=== PATIENT | female | born 1980 | race Caucasian/White ===

== ENCOUNTER 2020-05-08 17:02 | Outpatient (REF) | payer OTHER, SELFPAY ==
[2020-05-11 09:53] LABS: HBs Antibody, Quant 571.5 mIU/mL (See Note); Hepatitis B Surface Ab Positive (See Note)
== END 2020-05-08 17:22 ==
LOC: NCHCN 17:02
PROVIDERS: PCP Family Medicine; Visit Provider Physician Assistant Medical
DX: Z00.00 Encounter for general adult medical examination without abnormal findings (principal); Z01.84 Encounter for antibody response examination
CPT/HCPCS: 86706

== ENCOUNTER 2020-06-22 18:25 | Outpatient (REF) | payer OTHER, SELFPAY | END 2020-06-22 18:45 | LOC: NCHCN 18:25 | PROVIDERS: PCP Family Medicine; Visit Provider Nurse Practitioner Family | DX: J02.9 Acute pharyngitis, unspecified (principal) | CPT/HCPCS: 87070 ==

== ENCOUNTER 2020-06-23 09:34 | Outpatient (REF) | payer OTHER, SELFPAY ==
[2020-06-25 23:30] LABS: Patient Race White; SARS-CoV-2 RNA Undetected (Undetected); SARS-CoV-2 Specimen Source Nasal
== END 2020-06-23 09:54 ==
LOC: NCHCN 09:34
PROVIDERS: PCP Family Medicine; Visit Provider Nurse Practitioner Family
DX: J02.9 Acute pharyngitis, unspecified (principal); R51.9 Headache, unspecified
CPT/HCPCS: U0003

== ENCOUNTER 2021-04-23 13:37 | Outpatient (REF) | payer OTHER, SELFPAY ==
[2021-04-23 19:29] LABS: Abs Immature Grans 0.01 10^3/uL (0.0-0.06); Absolute Basophil Count 0.08 10^3/uL (0.0-0.2); Absolute Eosinophil Count 0.14 10^3/uL (0.0-0.7); Absolute Lymphocyte Count 2.14 10^3/uL (1.2-3.4); Absolute Monocyte Count 0.41 10^3/uL (0.1-0.8); Absolute Neutrophil Count 3.75 10^3/uL (1.2-6.7); Basophils % 1.2; Eosinophils % 2.1; HCT 39.7 % (36.0-46.0); HGB 12.9 g/dL (11.2-15.7); Immature Grans % 0.2; Lymphocytes % 32.8; MCH 30.5 pg (27.0-33.0); MCHC 32.5 % (32.0-36.0); MCV 93.9 fL (80-95); MPV 10.4 fL (8.0-11.0); Monocytes % 6.3; Neutrophils % 57.4; Nucleated RBC 0 %; Platelet Count 396 10^3/uL (130-400); RBC 4.23 10^6/uL (3.93-5.22); RDW 12.2 % (11.7-14.6); RDW-SD 42.3 fL; WBC 6.53 10^3/uL (4.4-10.8)
[2021-04-23 19:46] LABS: ALT 21 U/L (14-59); AST 11 U/L (15-37); Albumin 4.3 g/dL (3.4-5.0); Alkaline Phosphatase 55 U/L (46-116); Anion Gap 7.8 mmol/L (3-11); BUN 13 mg/dL (7-18); Bilirubin, Total 0.7 mg/dL (0.2-1.0); CO2 29.2 mmol/L (21.0-32.0); CREATININE 0.8 mg/dL (0.55-1.02); Calcium 8.9 mg/dL (8.5-10.1); Calculated LDL 120 mg/dL (<100); Chloride 102 mmol/L (98-107); Cholesterol 203 mg/dL (<200); Glucose 80 mg/dL (74-106); HDL Cholesterol 69 mg/dL (40-60); Sodium 139 mmol/L (136-145); Total Protein 7.3 g/dL (6.4-8.2); Triglyceride 72 mg/dL (<150)
== END 2021-04-23 13:38 | disposition home or self-care (01) ==
LOC: NCHCN 13:37
PROVIDERS: PCP Family Medicine; Visit Provider Physician Assistant Medical
DX: K21.9 Gastro-esophageal reflux disease without esophagitis (principal)
CPT/HCPCS: 80053; 80061; 85025

== ENCOUNTER 2022-09-30 14:13 | Outpatient (REF) | payer OTHER, SELFPAY ==
[2022-09-30 15:09] LABS: Abs Immature Grans 0.03 10^3/uL (0.0-0.06); Absolute Basophil Count 0.06 10^3/uL (0.0-0.2); Absolute Lymphocyte Count 2.02 10^3/uL (1.2-3.4); Absolute Monocyte Count 0.47 10^3/uL (0.1-0.8); Absolute Neutrophil Count 6.05 10^3/uL (1.2-6.7); Basophils % 0.7; Eosinophils % 2.3; HCT 41.3 % (36.0-46.0); HGB 13.3 g/dL (11.2-15.7); Immature Grans % 0.3; Lymphocytes % 22.9; MCHC 32.2 % (32.0-36.0); MCV 96 fL (80-95); MPV 10.2 fL (8.0-11.0); Monocytes % 5.3; Neutrophils % 68.5; Platelet Count 351 10^3/uL (130-400); RBC 4.29 10^6/uL (3.93-5.22); RDW 12.3 % (11.7-14.6); RDW-SD 43.6 fL; WBC 8.83 10^3/uL (4.4-10.8)
[2022-09-30 15:36] LABS: ALT 16 U/L (14-59); AST 12 U/L (15-37); Albumin 4.3 g/dL (3.4-5.0); Alkaline Phosphatase 60 U/L (46-116); Anion Gap 7.7 mmol/L (3-11); BUN 11 mg/dL (7-18); Bilirubin, Total 0.9 mg/dL (0.2-1.0); CO2 28.3 mmol/L (21.0-32.0); CREATININE 0.8 mg/dL (0.55-1.02); Chloride 105 mmol/L (98-107); Estimated GFR 95.46 (mL/min/1.73m2); Glucose 85 mg/dL (74-106); Magnesium 1.9 mg/dL (1.8-2.4); Potassium 3.8 mmol/L (3.5-5.1); Sodium 141 mmol/L (136-145); Total Protein 7.6 g/dL (6.4-8.2)
== END 2022-09-30 14:14 | disposition home or self-care (01) ==
LOC: NCHCN 14:13
PROVIDERS: PCP Family Medicine; Visit Provider Physician Assistant Medical
DX: R00.2 Palpitations (principal)
CPT/HCPCS: 80053; 83735; 84443; 85025

== ENCOUNTER 2025-03-26 17:39 | Outpatient (REF) | payer OTHER, SELFPAY ==
[2025-03-26 20:48] LABS: Hemoglobin A1C 5.4 % (<5.7)
[2025-03-26 21:21] LABS: Calculated LDL 129 mg/dL (<100); Cholesterol 213 mg/dL (<200); HDL Cholesterol 68 mg/dL (>or=50); Triglyceride 82 mg/dL (<150)
== END 2025-03-26 17:40 | disposition home or self-care (01) ==
LOC: NCHCN 17:39
PROVIDERS: PCP Family Medicine; Visit Provider Physician Assistant Medical
DX: Z13.6 Encounter for screening for cardiovascular disorders (principal); Z13.1 Encounter for screening for diabetes mellitus
CPT/HCPCS: 80061; 83036